=== PATIENT | female | born 1945 | race Caucasian/White ===

== ENCOUNTER 2017-05-11 17:40 | Emergency (ER) | payer OTHER, MEDICARE ==
[2017-05-11 17:57] VITALS: BP 127/51; PULSE 80; TEMP 98.1; BMI 25.7
--- NOTE | 2017-05-11 18:13 | PDOC ---
History of Present Illness <Nicole Lima - Last Filed: 05/11/17 19:27> - General Exam Limitations: No Limitations - History of Present Illness Initial Comments: 05/11/17 18:29 The patient is a 71 year old female, with a significant past medical history of hypertension and hyperlipidemia, who presents to the emergency department s/p mechanical fall earlier this morning. The patient reports she was walking her dog, when she tripped and fell on the curb earlier this morning. Patient reports she landed on her ribs, right wrist, scraped her chin and knees bilaterally. She denies any head trauma or LOC. Patient reports right wrist pain , but denies any ecchymosis. She reports rib pain, but denies any shortnesss of breath, diaphoresis, or palpitations. Patient denies any fever, chills, headache , or dizziness. She denies any other trauma. She denies she has taken any pain medications. Allergies: None reported Past surgical History: None reported Social History: Current everyday smoker. Nightly ETOH use. No recreational drug use. <Nate Dutta - Last Filed: 05/11/17 19:41> - General Chief Complaint: Injury Stated Complaint: RT WRIST, CHIN, LF KNEE INJURY Time Seen by Provider: 05/11/17 18:02 Past History - Past Medical History HTN: Yes Hypercholesterolemia: Yes - Psycho/Social/Smoking Cessation Hx Anxiety: No Suicidal Ideation: No Smoking History: Current every day smoker Have you smoked in the past 12 months: Yes Number of Cigarettes Smoked Daily: 20 Information on smoking cessation initiated: Yes 'Breaking Loose' booklet given: 05/11/17 Hx Alcohol Use: (nightly) <Nicole Lima - Last Filed: 05/11/17 19:27> <Nate Dutta - Last Filed: 05/11/17 19:41> - Past Medical History Allergies/Adverse Reactions: Allergies Allergy/AdvReac Type Severity Reaction Status Date / Time No Known Allergies Allergy Verified 05/11/17 17:43 Review of Systems - Review of Systems Able to Perform ROS?: Yes Comments:: 05/11/17 18:29 GENERAL/CONSTITUTIONAL: No fever or chills. No weakness. HEAD, EYES, EARS, NOSE AND THROAT: No change in vision. No ear pain or discharge. No sore throat. CARDIOVASCULAR: No chest pain or shortness of breath. RESPIRATORY: No cough, wheezing, or hemoptysis. GASTROINTESTINAL: No nausea, vomiting, diarrhea or constipation. GENITOURINARY: No dysuria, frequency, or change in urination. MUSCULOSKELETAL: Yes: +right wrist pain, +scraped knees bilaterally, +rib pain. No neck or back pain. SKIN: Yes: +scraped chin/knees. No rash NEUROLOGIC: No headache, vertigo, loss of consciousness, or change in strength/ sensation. ENDOCRINE: No increased thirst. No abnormal weight change. HEMATOLOGIC/LYMPHATIC: No anemia, easy bleeding, or history of blood clots. ALLERGIC/IMMUNOLOGIC: No hives or skin allergy. <Nate Dutta - Last Filed: 05/11/17 19:41> *Physical Exam - Vital Signs Last Vital Signs Temp Pulse Resp BP Pulse Ox 98.1 F 80 18 127/51 96 05/11/17 17:40 05/11/17 17:40 05/11/17 17:40 05/11/17 17:40 05/11/17 17:40 - Physical Exam Comments: GENERAL: Awake, alert, and fully oriented, in no acute distress HEAD: No signs of trauma EYES: PERRLA, EOMI, sclera anicteric, conjunctiva clear ENT: Auricles normal inspection, hearing grossly normal, nares patent, oropharynx clear without exudates. Moist mucosa NECK: Normal ROM, supple, no lymphadenopathy, JVD, or masses LUNGS: Breath sounds equal, clear to auscultation bilaterally. No wheezes, and no crackles HEART: Regular rate and rhythm, normal S1 and S2, no murmurs, rubs or gallops ABDOMEN: Soft, nontender, normoactive bowel sounds. No guarding, no rebound. No masses EXTREMITIES: R wrist with tenderness over the distal radius. +Ecchymosis. Remainder of extremities with normal range of motion, no edema. No clubbing or cyanosis. No cords, erythema, or tenderness NEUROLOGICAL: Cranial nerves II through XII grossly intact. Normal speech, normal gait SKIN: Warm, Dry, normal turgor. +Abrasions to the knees and chin. <Nicole Lima - Last Filed: 05/11/17 19:27> - Vital Signs Last Vital Signs Temp Pulse Resp BP Pulse Ox 98.1 F 80 18 127/51 96 05/11/17 17:40 05/11/17 17:40 05/11/17 17:40 05/11/17 17:40 05/11/17 17:40 <Nate Dutta - Last Filed: 05/11/17 19:41> Procedures - Splinting Splint Location: Right: Wrist Pre-Proc Neuro Vasc Exam: normal Hand-Made Type: orthoglass Splint Type: Yes: Sugar Tong Post-Proc Neuro Vasc Exam: normal Riki Bandage: 3" Sling: Yes Complications: No <Nicole Lima - Last Filed: 05/11/17 19:27> ED Treatment Course - RADIOLOGY Radiograph Interpretation: 05/11/17 19:39 EXAM: Right wrist X-Ray INTERPRETED BY: Dr. Diaz REVIEWED BY: Dr. Lima IMPRESSION: Fracture distal radius. EXAM: X-Ray Ribs bilateral INTERPRETED BY: Dr. Diaz REVIEWED BY: Dr. Lima IMPRESSION: No fracture or acute pathology. <Nate Dutta - Last Filed: 05/11/17 19:41> *DC/Admit/Observation/Transfer - Discharge Dispostion Admit: No <Nicole Lima - Last Filed: 05/11/17 19:27> - Attestations Scribe Attestion: 05/11/17 18:31 Documentation prepared by Nate Dutta, acting as director medical economics for Nicole Lima MD. <Nate Dutta - Last Filed: 05/11/17 19:41> Diagnosis at time of Disposition: Distal radial fracture Qualifiers: Encounter type: initial encounter Fracture type: closed Fracture morphology: unspecified fracture morphology Laterality: right Qualified Code(s): S52.501A - Unspecified fracture of the lower end of right radius, initial encounter for closed fracture - Discharge Dispostion Disposition: HOME Condition at time of disposition: Stable - Referrals Referrals: Reyes Liu MD [Staff Physician] - - Patient Instructions Printed Discharge Instructions: How to Use a Sling, DI for Wrist Fracture
== END 2017-05-11 19:37 | disposition home or self-care (01) ==
LOC: FER 17:40
PROC: 2W3EX1Z Immobilization of Right Hand using Splint (ICD-10-PCS; principal; 2017-05-11)
DX: S52.501A Unspecified fracture of the lower end of right radius, initial encounter for closed fracture (principal); W18.39XA Other fall on same level, initial encounter; Y93.89 Activity, other specified; Y92.9 Unspecified place or not applicable; F17.210 Nicotine dependence, cigarettes, uncomplicated; I10 Essential (primary) hypertension; E78.00 Pure hypercholesterolemia, unspecified
CPT/HCPCS: 29125; 71111-TC; 73110-TC-RT; 73130-TC-RT; 99282-25

== ENCOUNTER 2019-09-10 08:25 | Day surgery (SDC) | payer OTHER, MEDICARE ==
[2019-09-08 11:57] VITALS: BMI 23.2
[2019-09-10] MEDS: PHENYLEPHRINE 2.5% OPHTH SOLN 15 ML BOTTLE ONE ×3 (09:10→09:20)
[2019-09-10] MEDS: TROPICAMIDE 1% OPHTH SOLN 15 ML BOTTLE ONE ×3 (09:10→09:20)
[2019-09-10] MEDS: CYCLOPENTOLATE 2% OPHTH SOLN 2 ML BOTTLE ONE ×3 (09:10→09:20)
[2019-09-10] MEDS: CIPROFLOXACIN 0.3% EYE DROPS 5 ML BOTTLE ONE ×3 (09:10→09:20)
[2019-09-10] MEDS ORDERED: LIDOCAINE 1% P/F 10 MG/ML VIAL ONE (10:14)
[2019-09-10] MEDS ORDERED: TETRACAINE 0.5% OPHTH SOLN 2 ML BOTTLE ONE (10:14)
[2019-09-10] MEDS ORDERED: NEO/POLYMYX B SULF/DEXAMETH OPHTHALMIC 5ML BOTTLE ONE (10:14)
[2019-09-10] MEDS ORDERED: CARBACHOL 0.01% INTRA-OCULAR 1.5 ML VIAL ONE (10:14)
[2019-09-10] MEDS ORDERED: BSS (NA/CA/MG/K) BALANCED SALT SOLUTION OPHTH SOLN 15 ML BOTTLE ONE (10:14)
[2019-09-10] MEDS ORDERED: MIDAZOLAM HCL 2 MG/2 ML SINGLE DOSE VIAL ONE (10:23)
[2019-09-10 11:25] VITALS: BP 121/78; PULSE 65; TEMP 98
--- NOTE | 2019-09-10 19:37 | OP ---
DATE OF OPERATION: 09/10/2019 OPERATIVE PROCEDURE: Lens Phacoemulsification with Posterior Chamber Intraocular Lens Placement Left Eye PREOPERATIVE DIAGNOSIS: Visually Significant Cataract of Left Eye POSTOPERATIVE DIAGNOSIS: Visually Significant Cataract of Left Eye SURGEON: Prashant Corrales M.D. ANESTHESIA: MAC PROCEDURE: The patient was brought to the operating room and placed under monitored anesthesia care by Anesthesia. A drop of Tetracaine was then placed over the left eye. The patient was then prepped and draped in the usual sterile manner. A speculum was then placed over the left eye. The eye was then well irrigated with copious amounts of BSS (balanced salt solution). The operating microscope was then moved into position. A paracentesis was performed using a 15 degree blade. At this point 0.5 mL of 1% preservative-free lidocaine was injected into the anterior chamber. Amvisc plus was then injected into the anterior chamber. A clear corneal incision was then formed using a 2.2 mm keratome. A capsulorrhexis was then performed in a continuous circular fashion beginning with a cystotome, completed with an Utratas forceps. Hydrodissection was then performed using BSS on a cannula. The phaco probe was then introduced through the corneal wound and the cataract was removed using the phaco chop technique. Approximately 3 seconds of absolute phaco time was used. The remaining cortex was then removed using irrigation and aspiration with an I/A probe. The capsule was then filled with regular Amvisc and the capsule was noted to be intact. A previously selected foldable posterior chamber intraocular lens was then injected into the capsule through the corneal wound using a lens injector. It was then dialed into position using a Sinskey hook. The Amvisc was then removed using irrigation and aspiration. Miostat was then injected through the paracentesis to constrict the pupil. The paracentesis and corneal wound were then hydrated and noted to be water tight. A drop of Maxitrol was then placed over the eye. The speculum was removed and clear shield was taped over the eye. The patient tolerated the procedure well and there were no surgical complications. The patient was asked to follow up in my office the next day. PRASHANT CORRALES M.D. [id number]
== END 2019-09-10 11:27 | disposition home or self-care (01) ==
LOC: FASU 08:25
PROVIDERS: ATTEND Ophthalmology
PROC: 08RK3JZ Replacement of Left Lens with Synthetic Substitute, Percutaneous Approach (ICD-10-PCS; principal; 2019-09-10 10:28)
DX: H26.8 Other specified cataract (principal)

== ENCOUNTER 2019-10-22 09:55 | Day surgery (SDC) | payer OTHER, MEDICARE ==
[2019-10-20 10:39] VITALS: BMI 23.2
[2019-10-22] MEDS: CYCLOPENTOLATE 2% OPHTH SOLN 2 ML BOTTLE ONE ×3 (10:55→11:05)
[2019-10-22] MEDS: TROPICAMIDE 1% OPHTH SOLN 15 ML BOTTLE ONE ×3 (10:55→11:05)
[2019-10-22] MEDS: CIPROFLOXACIN 0.3% EYE DROPS 5 ML BOTTLE ONE ×3 (10:55→11:05)
[2019-10-22] MEDS: PHENYLEPHRINE 2.5% OPHTH SOLN 15 ML BOTTLE ONE ×3 (10:55→11:05)
[2019-10-22] MEDS ORDERED: MIDAZOLAM HCL 2 MG/2 ML SINGLE DOSE VIAL ONE (12:17)
[2019-10-22 12:53] VITALS: TEMP 98
[2019-10-22 13:19] VITALS: BP 133/61; PULSE 79
== END 2019-10-22 13:20 | disposition home or self-care (01) ==
LOC: FASU 09:55
PROVIDERS: ATTEND Ophthalmology
PROC: 08RJ3JZ Replacement of Right Lens with Synthetic Substitute, Percutaneous Approach (ICD-10-PCS; principal; 2019-10-22 12:21)
DX: H26.8 Other specified cataract (principal)